=== PATIENT | female | born 1930 | race Caucasian/White ===

== ENCOUNTER 2017-02-14 08:24 | Observation (INO) | payer MEDICARE, OTHER ==
[2017-02-14] MEDS ORDERED: BABY ASPIRIN 81 MG CHEW PO ONE (08:32)
[2017-02-14] MEDS ORDERED: Sodium Chloride 0.9% 1000 ML 1,000 ML IV SCH ×2 (08:45→12:05)
[2017-02-14] MEDS ORDERED: Sodium Chloride 0.9% 1000 ML 1,000 ML ONE (09:00)
[2017-02-14 09:09] LABS: BASOPHIL % 0.6 % (0.0-0.4); Eosinophil % 5.1 % (0.00-5.0); Granulocytes % 56.9 % (36.0-66.0); Lymphocytes % 20.7 % (24.0-44.0); Mean Cell Volume 92.3 fl (78-100); Mean Corpuscular Hemoglobin 29.4 pg (26-32); Mean Platelet Volume 11.2 fl (6-9.5); Monocytes % 16.7 % (0.0-12.0); Platelet Count 249 K/mm3 (150-450); Red Blood Count 4.28 M/mm3 (4.1-5.4); Red Cell Distribution Width 13.5 % (11.5-14.0); White Blood Count 8.9 K/mm3 (4.0-10.5)
--- NOTE | 2017-02-14 09:12 | ERPHSYRPT ---
- History of Present Illness Time Seen by Provider: 02/14/17 09:09 Historian: patient, family Exam Limitations: no limitations Patient Subjective Stated Complaint: CHEST PAIN YESTERDAY. TODAY NO CHEST PAIN BUT IS HAVING PAIN IN LOWER POSTERIOR NECK. DENIES SOB OR NAUSEA Triage Nursing Assessment: to room per ems cot. denies any chest pain today but does have neck pain. skin w/d, color pale. resp nonlabored. pulses good. no edema noted. heart tones regular. breath sounds clear. Physician History: 86-year-old female came to the emergency room with complaining of substernal heavy pressure type of chest pain yesterday and today it radiated to her neck, so she called ambulance. She is brought into the emergency room where she did not have any pain anymore, though en route to the emergency room. She was complaining of some neck pain but no chest pain. She was given an aspirin in ambulance. Patient denies any other symptoms. Patient has has a history of TIA and having some dementia. Timing/Duration: yesterday Activities at Onset: none Quality: pressure Location: substernal Chest Pain Radiation: neck Severity of Pain-Max: mild Severity of Pain-Current: none Modifying Factors: Improves With: nothing Associated Symptoms: denies symptoms Aspirin Treatment Today: 325 mg x 1 Allergies/Adverse Reactions: Penicillins Allergy (Verified 02/14/17 08:40) Sulfa (Sulfonamide Antibiotics) [Sulfa(Sulfonamide Antibiotics)] Allergy ( Verified 02/14/17 08:40) Home Medications: Atorvastatin Calcium [Lipitor] 10 mg PO DAILY 02/14/17 [History] Clopidogrel Bisulfate 75 mg [PLAVIX 75 MG Tablet] 75 mg PO DAILY 02/14/17 [History] Hx Tetanus, Diphtheria Vaccination/Date Given: No (pt unsure) Hx Influenza Vaccination/Date Given: Yes (2016) Hx Pneumococcal Vaccination/Date Given: Yes (2009) - Review of Systems Constitutional: No Fever, No Chills Eyes: No Symptoms Ears, Nose, & Throat: No Symptoms Respiratory: No Cough, No Dyspnea Cardiac: No Chest Pain, No Edema, No Syncope Abdominal/Gastrointestinal: No Abdominal Pain, No Nausea, No Vomiting, No Diarrhea Genitourinary Symptoms: No Dysuria Musculoskeletal: No Back Pain, No Neck Pain Skin: No Rash Neurological: No Dizziness, No Focal Weakness, No Sensory Changes Psychological: No Symptoms Endocrine: No Symptoms All Other Systems: Reviewed and Negative - Past Medical History Pertinent Past Medical History: Yes Neurological History: TIA Cardiac History: No Pertinent History Respiratory History: No Pertinent History Endocrine Medical History: No Pertinent History Musculoskeletal History: Degenerative Disk Disease, Osteoarthritis Other Medical History: R TKA IN 2002. - Past Surgical History Past Surgical History: Yes Gastrointestinal: Appendectomy Other Surgical History: carpal tunnel, right knee replacement - Social History Smoking Status: Never smoker Exposure to second hand smoke: Yes Drug Use: none Patient Lives Alone: No - Female History Hx Now: No - Nursing Vital Signs Nursing Vital Signs: Initial Vital Signs Temperature 97.8 F 02/14/17 08:25 Pulse Rate 66 02/14/17 08:25 Respiratory Rate 16 02/14/17 08:25 Blood Pressure 162/92 02/14/17 08:25 O2 Sat by Pulse Oximetry 96 02/14/17 08:25 Pain Scale Pain Intensity 10 - Physical Exam General Appearance: no apparent distress, alert Eye Exam: PERRL/EOMI, eyes nml inspection Ears, Nose, Throat Exam: normal ENT inspection, moist mucous membranes Neck Exam: normal inspection, non-tender, supple, full range of motion Respiratory Exam: normal breath sounds, lungs clear, No respiratory distress Cardiovascular Exam: regular rate/rhythm, normal heart sounds Gastrointestinal/Abdomen Exam: soft, No tenderness, No mass Back Exam: normal inspection, No CVA tenderness, No vertebral tenderness Extremity Exam: normal inspection, normal range of motion Neurologic Exam: alert, oriented x 3, cooperative, normal mood/affect, sensation nml, No motor deficits Skin Exam: normal color, warm, dry SpO2: 96 Oxygen Delivery: Nasal Cannula - Course Nursing assessment & vital signs reviewed: Yes EKG Interpreted by Me: Sinus Rhythm - CT Exams Cervical Spine CT Interpretation: Tele-radiologist Report (osteoarthritic changes) Ordered Tests: Active Orders 24 hr Category Date Time Status EKG-ER Only STAT Care 02/14/17 08:32 Active IV Insertion STAT Care 02/14/17 08:32 Active Oxygen-ED Only NASAL CANNULA 2 lpm Care 02/14/17 08:32 Active CERVICAL SPINE WO CONTRAST [CT] Stat Exams 02/14/17 10:00 Taken CHEST 1 VIEW (PORTABLE) Stat Exams 02/14/17 08:33 Taken CBC W DIFF Stat Lab 02/14/17 08:55 Completed CMP Stat Lab 02/14/17 08:55 Completed NT PRO BNP Stat Lab 02/14/17 08:55 Completed TROPONIN Stat Lab 02/14/17 08:55 Completed Medication Summary Generic Name Dose Route Start Last Admin Trade Name Radha PRN Reason Stop Dose Admin Sodium Chloride 1,000 mls @ 50 mls/hr 02/14/17 08:45 02/14/17 09:02 Sodium Chloride 0.9% 1000 Ml IV 03/16/17 08:44 50 mls/hr .Q20H CHIP Administration Discontinued Medications Generic Name Dose Route Start Last Admin Trade Name Radha PRN Reason Stop Dose Admin Aspirin 324 mg 02/14/17 08:32 02/14/17 09:02 Baby Aspirin 81 Mg Chew PO 02/14/17 08:33 Not Given STAT ONE Lab/Rad Data: Laboratory Result Diagrams 02/14/17 08:55 02/14/17 08:55 Laboratory Results 02/14/17 02/14/17 02/14/17 Range/Units 08:55 08:55 08:55 WBC 8.9 (4.0-10.5) K/mm3 RBC 4.28 (4.1-5.4) M/mm3 Hgb 12.6 (12.0-16.0) gm/dl Hct 39.5 (35-47) % MCV 92.3 (78-100) fl MCH 29.4 (26-32) pg MCHC 31.9 L (32-36) g/dl RDW 13.5 (11.5-14.0) % Plt Count 249 (150-450) K/mm3 MPV 11.2 H (6-9.5) fl Gran % 56.9 (36.0-66.0) % Lymphocytes % 20.7 L (24.0-44.0) % Monocytes % 16.7 H (0.0-12.0) % Eosinophils % 5.1 H (0.00-5.0) % Basophils % 0.6 (0.0-0.4) % Basophils # 0.05 (0-0.4) Sodium 141 (136-145) mEq/L Potassium 3.6 (3.5-5.1) mEq/L Chloride 104 (98-107) mEq/L Carbon Dioxide 28.5 (21-32) mEq/L Anion Gap 12.0 (5-15) MEQ/L BUN 16 (9-20) mg/dL Creatinine 1.08 (0.55-1.30) mg/dl Estimated GFR 51 ML/MIN Glucose 105 (70-110) MG/DL Calcium 9.2 (8.5-10.1) mg/dL Total Bilirubin 0.60 (0.2-1.0) mg/dL AST 30 (15-37) U/L ALT 12 (12-78) U/L Alkaline Phosphatase 82 (46-116) U/L Troponin I < 0.017 (0.000-0.056) ng/ml NT-Pro-B Natriuret Pep 418 (0-450) pg/ml Serum Total Protein 6.8 (6.4-8.2) gm/dL Albumin 3.3 L (3.4-5.0) g/dL - Progress Progress: unchanged (neck pain) Air Movement: good Blood Culture(s) Obtained: No Antibiotics given: No Discussed with Dr.: Jose Maria Will see patient in: hospital (observation) Counseled pt/family regarding: lab results, diagnosis, need for follow-up, rad results - Departure Time of Disposition: 11:11 Departure Disposition: Observation Clinical Impression: Chest pain of unknown etiology, Neck ache Condition: Fair Critical Care Time: Yes Critical Care Time(excluding separately billable procedures): 30-74 minutes Referrals: JESSIKA SULLIVAN [Primary Care Provider] - Instructions: Atypical Chest Pain
[2017-02-14 09:32] LABS: ALBUMIN 3.3 g/dL (3.4-5.0); BILIRUBIN,TOTAL 0.6 mg/dL (0.2-1.0); Carbon Dioxide 28.5 mEq/L (21-32); Potassium 3.6 mEq/L (3.5-5.1); Total Protein 6.8 gm/dL (6.4-8.2)
[2017-02-14] MEDS ORDERED: TORAdol 30 mg Injection IV ONE (11:16)
[2017-02-14] MEDS ORDERED: TORAdol 30 mg Injection ONE (11:17)
[2017-02-14] MEDS ORDERED: TORAdol 30 mg Injection IV PRN (12:05)
[2017-02-14] MEDS ORDERED: TYLENOL 325 MG PO PRN (12:05)
[2017-02-14 16:20] VITALS: BP 112/53; PULSE 63; O2SAT 96
--- NOTE | 2017-02-14 17:00 | PCM.HP ---
History of Present Illness - Chief Complaint Chief Complaint: Neck pain, chest pain of unknown etiology Date: 02/14/17 History of Present Illness: is a 86 year old female. who for the last 3 days reports she has been confined to the bed unable to eat and weak in the legs with severe neck pain and yesterday developed chest pain and pressure but does not report any today. She was seen in ED and given toradol for her pain and admitted for chest pain rule out but now not having chest pain and troponin was negative ekg looks good. She currently notes pain is nearly resolved and she feels tired but much better. No chest pain or shortness of breath. - Review of Systems Constitutional: No Fever, No Chills Eyes: No Symptoms Ears, Nose, & Throat: No Symptoms Respiratory: No Cough, No Short Of Breath Cardiac: No Chest Pain, No Edema, No Syncope Abdominal/Gastrointestinal: No Abdominal Pain, No Nausea, No Vomiting, No Diarrhea Genitourinary Symptoms: No Dysuria Musculoskeletal: Arthralgias, Back Pain, Neck Pain, Myalgias Skin: No Rash Neurological: No Dizziness, No Focal Weakness, No Sensory Changes Psychological: No Symptoms Endocrine: No Symptoms Hematologic/Lymphatic: No Symptoms Immunological/Allergic: No Symptoms Medications & Allergies Home Medications: Home Medication List Atorvastatin Calcium [Lipitor] 10 mg PO DAILY 02/14/17 [History Confirmed ] Clopidogrel Bisulfate 75 mg [PLAVIX 75 MG Tablet] 75 mg PO DAILY 02/14/17 [History Confirmed 02/14/17] Allergies/Adverse Reactions: Allergies Allergy/AdvReac Type Severity Reaction Status Date / Time Penicillins Allergy Verified 02/14/17 08:40 Sulfa (Sulfonamide Allergy Verified 02/14/17 08:40 Antibiotics) [Sulfa(Sulfonamide Antibiotics)] - Past Medical History Past Medical History: Yes Neurological History: TIA Cardiac History: No Pertinent History Respiratory History: No Pertinent History Endocrine Medical History: No Pertinent History Musculoskelatal History: Degenerative Disk Disease, Osteoarthritis GI Medical History: No Pertinent History History: No Pertinent History Pyscho-Social History: No Pertinent History Reproductive Disorders: No Pertinent History Comment: R TKA IN 2002. - Female History Are you now?: No - Past Surgical History Past Surgical History: Yes GI Surgical History: Appendectomy Other Surgical History: Carpal Tunnel Surgery - Social History Smoking Status: Never smoker Exposure to second hand smoke: No Alcohol: None Drug Use: none - Physical Exam Vital Signs: Vital Signs - 24 hr Temp Pulse Pulse Resp BP Pulse Ox 02/14/17 16:00 97.5 F 63 16 112/53 96 02/14/17 12:41 97.6 F 56 L 16 128/60 92 L 02/14/17 12:38 97.6 F 56 L 128/60 02/14/17 12:33 97.6 F 56 L 16 128/60 92 L 02/14/17 11:15 60 16 161/56 96 02/14/17 11:12 96 02/14/17 10:00 60 16 152/66 98 02/14/17 08:27 64 02/14/17 08:25 97.8 F 66 16 162/92 96 Oxygen-Last 24 hours O2 Percentage 2 Liters = 28% O2 Percentage 2 Liters = 28% O2 Percentage 2 Liters = 28% O2 Percentage 2 Liters = 28% O2 Percentage 2 Liters = 28% General Appearance: no apparent distress, alert Neurologic Exam: alert, oriented x 3, cooperative, normal mood/affect, nml cerebellar function, nml station & gait, sensation nml, No motor deficits Eye Exam: PERRL/EOMI, eyes nml inspection Ears, Nose, Throat Exam: normal ENT inspection, TMs normal, pharynx normal, moist mucous membranes Neck Exam: normal inspection, non-tender, supple, full range of motion Respiratory Exam: normal breath sounds, lungs clear, No respiratory distress Cardiovascular Exam: regular rate/rhythm, normal heart sounds, normal peripheral pulses Gastrointestinal/Abdomen Exam: soft, normal bowel sounds, No tenderness, No mass Back Exam: normal inspection, other (neck with trapezius spasm mild tenderness bilateral worse on right), No CVA tenderness Extremity Exam: normal inspection, normal range of motion, pelvis stable Skin Exam: normal color, warm, dry, No rash Lymphatic Exam: No adenopathy Assessment/Plan (1) Chest pain Current Visit: Yes Status: Acute Assessment & Plan: resolved it was yesterday and torponin negative ekg ok no symptoms now was given torodol and neck pain better with her plavix will d/c toradol and use corticosteroid and use gi ppx on this work on physical/occupation therapy on the trapezius strain and the cervical arthritis and weakness with gait impairment. with her improved now will go ahead and give her some prednisone to help keep it under control and let her go home with her daughter for outpatient f/u Code(s): R07.9 - CHEST PAIN, UNSPECIFIED (2) Trapezius muscle spasm Current Visit: Yes Status: Acute Code(s): M62.838 - OTHER MUSCLE SPASM (3) Cervical arthritis Current Visit: Yes Status: Acute Code(s): M46.92 - UNSPECIFIED INFLAMMATORY SPONDYLOPATHY, CERVICAL REGION (4) Dementia Current Visit: Yes Status: Chronic Qualifiers: Dementia behavioral disturbance: without behavioral disturbance Assessment & Plan: mild Code(s): F03.90 - UNSPECIFIED DEMENTIA WITHOUT BEHAVIORAL DISTURBANCE (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
[2017-02-14] MEDS ORDERED: DELTASONE 20 MG PO ONE (17:31)
--- NOTE | 2017-02-14 17:37 | PCM.DCORD ---
- Discharge Discharge Date: 02/14/17 Disposition: Home, Self-Care Condition: Fair Prescriptions: New Prednisone 20 mg [Deltasone 20 mg] 20 mg PO DAILY #4 tablet Famotidine 20 mg [Pepcid 20 MG] 20 mg PO BID 5 Days #30 tablet Acetaminophen 325 mg [Tylenol 325 mg] 650 mg PO Q4H PRN PRN tablet PRN Reason: Pain And/Or Fever Continue Atorvastatin Calcium [Lipitor] 10 mg PO DAILY Clopidogrel Bisulfate 75 mg [PLAVIX 75 MG Tablet] 75 mg PO DAILY Instructions: Atypical Chest Pain Additional Instructions: You were given 1 dose of prednisone before leaving take the next dose starting tomorrow try the pepcid while taking the prednisone and as needed after this for any upset stomach. return for new or worsening symptoms. You may use tylenol as directed as well for the pain and warm compresses or ice packs Follow up with: JESSIKA SULLIVAN [Primary Care Provider] - Forms: Patient Portal Information
[2017-02-14] MEDS ORDERED: DELTASONE 20 MG ONE (17:52)
--- NOTE | 2017-02-14 19:47 | XRAY ---
Indication: Chest pain. Comparison: December 25, 2015. Portable chest remains clear. Heart is not enlarged. Bony thorax intact again with osteopenia, degenerative changes, and right shoulder surgery. Impression: Stable nonacute chest with chronic features.
--- NOTE | 2017-02-14 19:51 | XRAY ---
Indication: Posterior neck pain. No known injury. Multiple contiguous axial images obtained through the cervical spine. Sagittal and coronal reformatted images obtained. Comparison: None Axial images negative for acute fracture, suspicious bony lesions, or spinal canal stenosis. There is mild/moderate C4-C7 degenerative endplate spurring. Also minimal/mild multilevel bilateral degenerative facet arthropathy and odontoid subcortical cysts. Sagittal and coronal reformatted images demonstrates slight lordotic straightening, positional versus paraspinal spasm. There is C4-C7 disc space narrowing. Minimal 1-2 mm C7 anterolisthesis on T1. No acute compression fracture, subluxation, or jump facet. Visualized noncontrasted soft tissues demonstrates mild carotid calcifications bilaterally and subcentimeter right thyroid nodule/cyst. Base of the brain and lung apices unremarkable. Impression: 1. Multilevel degenerative changes including minimal grade 1 C7 anterolisthesis. 2. Negative acute fracture. 3. Right thyroid subcentimeter cyst/nodule. Comment: Preliminary interpretation was made by [facility]. No discrepancy. CTDI 113.25
[2017-02-14] MEDS ORDERED: Pepcid 20 MG PO SCH (22:00)
[2017-02-14] MEDS ORDERED: DELTASONE 20 MG PO SCH (22:00)
== END 2017-02-14 18:55 | disposition home or self-care (01) ==
LOC: ED 08:24 → MED SURG 12:03
PROVIDERS: ADMIT Family Medicine; ATTEND Family Medicine
DX: R07.9 Chest pain, unspecified (principal); M62.838 Other muscle spasm; M46.92 Unspecified inflammatory spondylopathy, cervical region; F03.90 Unspecified dementia, unspecified severity, without behavioral disturbance, psychotic disturbance, mood disturbance, and anxiety; I69.320 Aphasia following cerebral infarction
CPT/HCPCS: 36415; 71010; 72125; 80053; 83880; 84484; 85025; 93005; 93268; 96360; 96361; 96374; 99285; G0378; J1885; J7506

== ENCOUNTER 2017-05-22 16:05 | Emergency (ER) | payer MEDICARE, OTHER ==
--- NOTE | 2017-05-22 16:52 | ERPHSYRPT ---
- History of Present Illness Time Seen by Provider: 05/22/17 16:45 Source: patient Exam Limitations: no limitations Patient Subjective Stated Complaint: Pt states "I have been having nose bleeds for the past 3 to 4 days and I am on plavix. I just want to make sure I am not missing anything." Triage Nursing Assessment: Pt alert and oriented X 3, skin pwd. Pt ambulates with a cane without any difficulty, able to speak in clear full sentnces. Physician History: This is an 86-year-old white female who arrives with complaint of intermittent nosebleed for 3-4 days last time it bled was this morning at 7:00. Patient is on Plavix. She denies any other complaints. Past medical history includes degenerative disc disease, osteoarthritis, Past surgical history includes appendectomy carpal tunnel right total knee arthroplasty. Timing/Duration: day(s) (3-4 days) Severity: mild Modifying Factors: Improves With: other (patient is on Plavix) Associated Symptoms: other (epistaxis), No nausea, No vomiting, No abdominal pain, No shortness of breath, No heartburn, No diaphoresis, No cough, No chills , No chest pain, No fever, No headaches, No loss of appetite, No malaise, No rash, No syncope, No seizure Allergies/Adverse Reactions: Penicillins Allergy (Verified 02/14/17 08:40) Sulfa (Sulfonamide Antibiotics) [Sulfa(Sulfonamide Antibiotics)] Allergy ( Verified 02/14/17 08:40) Home Medications: Atorvastatin Calcium [Lipitor] 10 mg PO DAILY 02/14/17 [History] Clopidogrel Bisulfate 75 mg [PLAVIX 75 MG Tablet] 75 mg PO DAILY 02/14/17 [History] Hx Tetanus, Diphtheria Vaccination/Date Given: No Hx Influenza Vaccination/Date Given: Yes Hx Pneumococcal Vaccination/Date Given: No Immunizations Up to Date: Yes - Review of Systems Constitutional: No Fever, No Chills Eyes: No Symptoms Ears, Nose, & Throat: Other (epistaxis), No Ear Pain, No Ear Discharge, No Hearing Changes, No Tinnitus, No Nose Pain, No Nose Congestion, No Nose Discharge, No Sinus Drainage, No Epistaxis, No Mouth Pain, No Mouth Swelling, No Loose Teeth, No Throat Pain, No Throat Swelling, No Hoarse, No Painful Swallowing, No Snoring, No Stridor Respiratory: No Cough, No Dyspnea Cardiac: No Chest Pain, No Edema, No Syncope Abdominal/Gastrointestinal: No Abdominal Pain, No Nausea, No Vomiting, No Diarrhea Genitourinary Symptoms: No Dysuria Musculoskeletal: No Back Pain, No Neck Pain Skin: No Rash Neurological: No Dizziness, No Focal Weakness, No Sensory Changes Psychological: No Symptoms Endocrine: No Symptoms All Other Systems: Reviewed and Negative - Past Medical History Pertinent Past Medical History: Yes Neurological History: TIA Cardiac History: No Pertinent History Respiratory History: No Pertinent History Endocrine Medical History: No Pertinent History Musculoskeletal History: Degenerative Disk Disease, Osteoarthritis GI Medical History: No Pertinent History History: No Pertinent History Psycho-Social History: No Pertinent History Female Reproductive Disorders: No Pertinent History Other Medical History: R TKA [place] 2002. - Past Surgical History Past Surgical History: Yes Gastrointestinal: Appendectomy Other Surgical History: Carpal Tunnel Surgery - Social History Smoking Status: Never smoker Exposure to second hand smoke: No Drug Use: none Patient Lives Alone: No - Nursing Vital Signs Nursing Vital Signs: Initial Vital Signs Temperature 98 F 05/22/17 16:15 Pulse Rate 74 05/22/17 16:15 Respiratory Rate 16 05/22/17 16:15 Blood Pressure 146/74 05/22/17 16:15 O2 Sat by Pulse Oximetry 95 05/22/17 16:15 Pain Scale Pain Intensity 0 - Physical Exam General Appearance: no apparent distress, alert Eye Exam: PERRL/EOMI, eyes nml inspection Ears, Nose, Throat Exam: TMs normal, pharynx normal, moist mucous membranes, other (dried clots versus blood stained mucus in both naris) Neck Exam: normal inspection, non-tender, supple, full range of motion Respiratory Exam: normal breath sounds, lungs clear, No respiratory distress Cardiovascular Exam: regular rate/rhythm, normal heart sounds, normal peripheral pulses Gastrointestinal/Abdomen Exam: soft, normal bowel sounds, No tenderness, No mass Back Exam: normal inspection, normal range of motion, No CVA tenderness, No vertebral tenderness Extremity Exam: normal inspection, normal range of motion, pelvis stable Neurologic Exam: alert, oriented x 3, cooperative, normal mood/affect, nml cerebellar function, nml station & gait, sensation nml, No motor deficits Skin Exam: normal color, warm, dry, No rash SpO2 Interpretation: normal (95%), borderline oxygenation SpO2: 95 Oxygen Delivery: Room Air - Course Nursing assessment & vital signs reviewed: Yes Ordered Tests: Medication Summary Discontinued Medications Generic Name Dose Route Start Last Admin Trade Name Radha PRN Reason Stop Dose Admin Phenylephrine HCl 15 ml 05/22/17 17:02 Neosynephrine 0.5% Nasal [place]/Drops NS 05/22/17 17:03 STAT ONE - Progress Progress: improved Progress Note: 05/22/17 17:05 Patient's nurse had patient blow her nose she got a rather large clot out of the left naris she also got some bloodstained mucus out of both naris. Patient is feeling much better no active bleeding. Left naris appears to have erythematous mucosa. Will go ahead and give patient 2 sprays of 0.5% Isaac-Synephrine in the left naris. Will plan to discharge - Departure Time of Disposition: 17:07 Departure Disposition: Home Clinical Impression: Epistaxis Condition: Fair Critical Care Time: No Referrals: JESSIKA SULLIVAN [Primary Care Provider] - Instructions: Nosebleeds (DC) Additional Instructions: Return home. Humidifier house or cool mist vaporizer. Isaac-Synephrine 0.5% 2 sprays in left naris every 4 hours as needed for one to 2 days. Follow-up with your family doctor if symptoms persist more than one to 2 days become worse or problems or become recurrent. Return for acute distress or for severe symptoms.
[2017-05-22] MEDS ORDERED: NEOSYNEPHRINE 0.5% NASAL SPRAY/DROPS ONE (17:03)
[2017-05-22] MEDS: NEOSYNEPHRINE 0.5% NASAL SPRAY/DROPS NS ONE (17:05)
[2017-05-22 17:09] VITALS: BP 157/68; PULSE 76; O2SAT 98
== END 2017-05-22 17:13 | disposition home or self-care (01) ==
LOC: ED 16:05
DX: R04.0 Epistaxis (principal); Z86.73 Personal history of transient ischemic attack (TIA), and cerebral infarction without residual deficits; Z79.899 Other long term (current) drug therapy
CPT/HCPCS: 99283; A9270-GY